=== PATIENT | female | born 1980 | race Caucasian/White ===

== ENCOUNTER 2018-03-09 05:30 | Inpatient (IN) | payer BC ==
[2018-03-09] MEDS ORDERED: LR / Pitocin 40 units/1000 ml 1,000 ML IV PRN (05:58)
[2018-03-09] MEDS ORDERED: Docusate 100 MG CAP PO PRN (05:58)
[2018-03-09] MEDS ORDERED: HYDROcodone/Acetaminophen 5/325 mg Tablet PO PRN ×3 (05:58→18:52)
[2018-03-09] MEDS ORDERED: Diphenoxylate HCl/Atropine Tablet PO PRN ×2 (05:58)
[2018-03-09] MEDS ORDERED: Ondansetron HCl/PF 4 MG/2 ML Vial IVP PRN ×2 (05:58→18:52)
[2018-03-09] MEDS ORDERED: Zolpidem Tartrate 5 MG TAB PO PRN ×2 (05:58→18:52)
[2018-03-09] MEDS ORDERED: Promethazine HCl 25 MG/ML VIAL IM PRN (05:58)
[2018-03-09] MEDS ORDERED: LR 500 ML/Oxytocin 10 units 500 ML IV SCH (05:58)
[2018-03-09] MEDS ORDERED: Misoprostol 200 MCG TAB PR PRN (05:58)
[2018-03-09] MEDS ORDERED: Ibuprofen 800 MG TAB PO PRN (05:58)
[2018-03-09] MEDS ORDERED: Acetaminophen 500 MG TAB PO PRN (05:58)
[2018-03-09] MEDS ORDERED: Lidocaine 1% (PF) 30 ML VIAL SC PRN (05:58)
[2018-03-09] MEDS ORDERED: CEFAZOLIN 1 GM in Syringe 10 ML IVPB SCH (06:00)
[2018-03-09] MEDS: Lactated Ringer's 1,000 ML IV SCH ×4 (06:15→19:00)
[2018-03-09 06:34] VITALS: BMI 46.6
[2018-03-09 06:38] LABS: Hemoglobin 12.5 g/dL (12.0-16.0); Mean Corpuscular HGB CONC 33.7 g/dL (32.0-36.0); Mean Corpuscular Hemoglobin 29.8 pg (27.0-31.0); Mean Corpuscular Volume 88.4 fl (81.0-99.0); Mean Platelet Volume 7.7 fL (7.4-10.4); Platelet Count 331 thou/uL (130-400); RBC Distribution Width 13.8 % (11.5-14.5); Red Blood Cell (RBC) Count 4.19 mill/uL (4.20-5.40); White Blood Cell (WBC) Count 13.2 thou/uL (4.8-10.8)
[2018-03-09 07:19] LABS: Hep B Surf Ag Non-Reactive S/CO (NonReactive); Syphilis Antibody Nonreactive (Nonreactive); Syphilis Antibody Index 0.03 S/CO (<1.00 Non-Reactive)
[2018-03-09] MEDS ORDERED: Lidocaine 2% MPF 10 ML AMP (For Epidural Use) ONE (09:00)
[2018-03-09] MEDS ORDERED: Bupivacaine 0.25% HCL 30 ML VIAL ONE (09:00)
[2018-03-09] MEDS ORDERED: DISCONTINUE ALL PREVIOUS NARCOTICS FS SCH (10:30)
[2018-03-09] MEDS: Bupivacaine 0.5% 20 ML, fentaNYL Citrate/PF 400 MCG in Sodium Chloride 0.9% 72 ML EPIDURAL SCH ×2 (11:40→17:05)
[2018-03-09] MEDS ORDERED: Bisacodyl 10 MG SUPP PR PRN (18:52)
[2018-03-09] MEDS ORDERED: diphenhydrAMINE 25 MG CAP PO PRN (18:52)
[2018-03-09] MEDS ORDERED: Milk Of Magnesia 30 ML UDCUP PO PRN (18:52)
[2018-03-09] MEDS ORDERED: Benzocaine/Menthol 20-0.5% 60 ML CAN TOP PRN (18:52)
[2018-03-09] MEDS ORDERED: Adacel (T-DAP) 0.5 ML VIAL IM ONE (18:52)
[2018-03-09] MEDS ORDERED: Preparation H Ointment 28 GM TUBE PR PRN (18:52)
[2018-03-09] MEDS ORDERED: Lanolin Ointment 7 GM TUBE TOP PRN (18:52)
[2018-03-09] MEDS ORDERED: LR / Pitocin 40 units/1000 ml 1,000 ML IV SCH (19:00)
[2018-03-09] MEDS: Ibuprofen 800 MG TAB PO SCH (20:32)
[2018-03-09] MEDS: Docusate Calcium (SURFAK) 240 MG CAP PO SCH (22:10)
[2018-03-10 05:20] LABS: Hemoglobin 11.1 g/dL (12.0-16.0); Mean Corpuscular HGB CONC 33.2 g/dL (32.0-36.0); Mean Corpuscular Hemoglobin 29.6 pg (27.0-31.0); Mean Corpuscular Volume 89.4 fl (81.0-99.0); Platelet Count 270 thou/uL (130-400); RBC Distribution Width 13.9 % (11.5-14.5); Red Blood Cell (RBC) Count 3.75 mill/uL (4.20-5.40); White Blood Cell (WBC) Count 17.1 thou/uL (4.8-10.8)
[2018-03-10] MEDS: Ibuprofen 800 MG TAB PO SCH ×3 (05:34→21:49)
[2018-03-10] MEDS: Ferrous Sulfate 325 MG TAB PO SCH ×2 (07:18→16:40)
[2018-03-10] MEDS: Prenatal Vitamin 1 TAB PO SCH (09:06)
[2018-03-10] MEDS: Docusate Calcium (SURFAK) 240 MG CAP PO SCH ×2 (09:06→21:49)
[2018-03-10] MEDS: HYDROcodone/Acetaminophen 5/325 mg Tablet PO PRN (15:15)
[2018-03-11] MEDS: Ibuprofen 800 MG TAB PO SCH (05:44)
[2018-03-11] MEDS: Docusate Calcium (SURFAK) 240 MG CAP PO SCH (10:55)
[2018-03-11] MEDS: Prenatal Vitamin 1 TAB PO SCH (10:56)
[2018-03-11] MEDS: Ferrous Sulfate 325 MG TAB PO SCH (10:56)
[2018-03-11] MEDS: HYDROcodone/Acetaminophen 5/325 mg Tablet PO PRN (10:58)
[2018-03-11 12:03] VITALS: BP 130/72; TEMP 98.5
== END 2018-03-11 12:20 | disposition home or self-care (01) | DRG 775 ==
LOC: L&D 05:54 → 3SE 21:21
PROVIDERS: ADMIT Obstetrics & Gynecology; ATTEND Obstetrics & Gynecology
PROC: 10E0XZZ Delivery of Products of Conception, External Approach (ICD-10-PCS; principal; 2018-03-09)
PROC: 0KQM0ZZ Repair Perineum Muscle, Open Approach (ICD-10-PCS; 2018-03-09)
PROC: 10907ZC Drainage of Amniotic Fluid, Therapeutic from Products of Conception, Via Natural or Artificial Opening (ICD-10-PCS; 2018-03-09)
PROC: 3E033VJ Introduction of Other Hormone into Peripheral Vein, Percutaneous Approach (ICD-10-PCS; 2018-03-09)
DX: O99.824 Streptococcus B carrier state complicating childbirth (principal); Z37.0 Single live birth; O70.1 Second degree perineal laceration during delivery; Z3A.39 39 weeks gestation of pregnancy
CPT/HCPCS: 36415; 85027; 86780; 87340; J0595; J0690; J2001; J3010; J3490; J7050; J7120; S0020

== ENCOUNTER 2018-12-05 23:37 | Emergency (ER) | payer BC ==
[2018-12-06 00:58] LABS: Bilirubin Negative (Negative); Blood, Urine Negative (Negative); Clarity Slightly Cloudy (Clear); Glucose, Urine (Dipstick) Negative (Negative); Leukocyte Trace (Negative); Nitrite Negative (Negative); Protein, Urine (Dipstick) Negative (Neg-Trace); Specific Gravity, Urine 1.025 (1.005-1.030); Urobilinogen 0.2 mg/dL (0.2-1.0)
[2018-12-06 01:06] LABS: Bacteria/HPF 2+ HPF (None Seen); Hyaline Casts/LPF NONE SEEN LPF (0-3 Hyaline)
[2018-12-06 01:10] LABS: Band 1 % (5-11); Eosinophils 4 % (0-10); Hemoglobin 12.9 g/dL (12.0-16.0); Lymphocytes 16 % (21-51); MDiff Complete? YES; Mean Corpuscular HGB CONC 34.4 g/dL (32.0-36.0); Mean Corpuscular Hemoglobin 30.7 pg (27.0-31.0); Mean Corpuscular Volume 89.2 fL (78.0-98.0); Mean Platelet Volume 7.1 fL (7.4-10.4); Monocytes 6 % (0-10); Neutrophil 73 % (42-75); Platelet Count 309 thou/uL (130-400); RBC Distribution Width 13.3 % (11.5-14.5); Red Blood Cell (RBC) Count 4.19 mill/uL (4.20-5.40); White Blood Cell (WBC) Count 12.8 thou/uL (4.8-10.8)
[2018-12-06 01:12] LABS: ALT (SGPT) 11 U/L (8-55); AST (SGOT) 10 U/L (5-34); Albumin 3.7 g/dL (3.5-5.0); Alkaline Phosphatase 52 U/L (40-150); Anion Gap 17 mmol/L (10-20); BUN (Urea Nitrogen) 12 mg/dL (7.0-18.7); Bilirubin, Total 0.3 mg/dL (0.2-1.2); Calc. Creatinine Clearance 0 mL/min (70-130); Calcium 9.5 mg/dL (7.8-10.44); Carbon Dioxide 19 mmol/L (22-29); Chloride 105 mmol/L (98-107); Estimated GFR-MDRD Greater than 90; Globulin 3.6 g/dL (2.4-3.5); Glucose 119 mg/dL (70-105); Potassium 3.9 mmol/L (3.5-5.1); Protein, Total 7.3 g/dL (6.0-8.3); Sodium 137 mmol/L (136-145)
[2018-12-06] MEDS ORDERED: Morphine 4 MG/ML Carpuject ONE ×2 (01:35→02:50)
[2018-12-06 02:15] LABS: Bilirubin Negative (Negative); Blood, Urine Trace (Negative); Clarity Cloudy (Clear); Glucose, Urine (Dipstick) Negative (Negative); Leukocyte Negative (Negative); Nitrite Negative (Negative); Protein, Urine (Dipstick) Negative (Neg-Trace); Specific Gravity, Urine 1.026 (1.002-1.036); Urobilinogen 0.2 mg/dL (0.2-1.0); pH, Urine 5.5 (5.0-9.0)
[2018-12-06 02:18] LABS: RBC/HPF 0-3 HPF (0-3)
[2018-12-06 02:20] LABS: Bacteria/HPF Rare-Few HPF (None Seen); Hyaline Casts/LPF NONE SEEN LPF (0-3 Hyaline)
[2018-12-06] MEDS ORDERED: Acetaminophen 500 MG TAB ONE (02:51)
[2018-12-06] MEDS ORDERED: Lidocaine 1% PF 5 ML VIAL ONE (02:51)
[2018-12-06] MEDS ORDERED: cefTRIAXone\\ROCEPHIN 1 GM VIAL ONE (02:51)
--- NOTE | 2018-12-06 09:25 | ULT ---
PRELIMINARY REPORT/[facility]/EMERGENTY AFTER-HOURS PROCEDURE US Retroperitoneal Limited, Kidneys EXAM DATE/TIME: 12/06/2018 1:07 AM CLINICAL HISTORY: 38 years old, female; Pain; Abdominal pain; Flank; Right; ; Patient HX: RT flank pain x 1 day , pain worse to RT flank; Additional info: HX: Recent uti, kidney stones TECHNIQUE: Real-time ultrasound of the retroperitoneum with image documentation. Examination was focused on the kidneys. COMPARISON: No relevant prior studies available. FINDINGS: Right kidney: Nonobstructing renal calculi. No hydronephrosis. No mass. Left kidney: Nonobstructing renal calculi. No hydronephrosis. No mass. Other findings: Questional echogenic foci posterior to bladder/questionable right ureteral calculi. B ilateral ureteral jets visualized. Bladder is somewhat decompressed. Partially visualized ( FHR: 147bpm). IMPRESSION: Bilateral nonobstructing renal calculi. Questionable echogenic foci posterior to bladder/questionable right ureteral calculi. Bilateral urete ral jets visualized. No hydronephrosis. Thank you for allowing us to participate in the care of your patient. Dictated and Authenticated by: Zachary Hill MD 12/06/2018 2:16 AM Central Time ([place] & [place]) FINAL REPORT BILATERAL RENAL SONOGRAM PERFORMED ON AN EMERGENCY BASIS: Date: 12/06/18 Time: 0108 hours HISTORY: Flank pain. Patient is . FINDINGS: Findings agree with the preliminary report by [facility]. Small, nonobstructing bilateral renal calculi. Bi lateral ureteral jets are visible at the bladder base. Echogenic focus at the posterior aspect of the urinary bladder may represent a urinary bladder calculus. No evidence of urinary tract obstruction. POS: [facility]
== END 2018-12-06 03:50 | disposition home or self-care (01) ==
LOC: SCSER 23:37
DX: O99.89 Other specified diseases and conditions complicating pregnancy, childbirth and the puerperium (principal); N20.0 Calculus of kidney; Z87.442 Personal history of urinary calculi; Z3A.18 18 weeks gestation of pregnancy
CPT/HCPCS: 36415; 51701; 76770; 80053; 81003; 81015; 85025; 87086; 96372; A4353; J0696; J2001; J2270

== ENCOUNTER 2019-04-25 16:07 | Inpatient (IN) | payer BC ==
[2019-04-25 16:48] VITALS: BMI 52.2
[2019-04-25] MEDS ORDERED: Misoprostol 200 MCG TAB PR PRN (16:49)
[2019-04-25] MEDS ORDERED: Zolpidem Tartrate 5 MG TAB PO PRN (16:49)
[2019-04-25] MEDS ORDERED: Ondansetron PF 4 MG/2 ML Vial IVP PRN (16:49)
[2019-04-25] MEDS ORDERED: Ibuprofen 800 MG TAB PO PRN (16:49)
[2019-04-25] MEDS ORDERED: Promethazine HCl 25 MG/ML VIAL IM PRN (16:49)
[2019-04-25] MEDS ORDERED: Acetaminophen 500 MG TAB PO PRN (16:49)
[2019-04-25] MEDS ORDERED: Docusate 100 MG CAP PO PRN (16:49)
[2019-04-25] MEDS ORDERED: HYDROcodone/Acetaminophen 5/325 mg Tablet PO PRN ×2 (16:49)
[2019-04-25] MEDS ORDERED: NS / Oxytocin 40 units/1000ml 1,000 ML IV PRN (16:49)
[2019-04-25] MEDS ORDERED: Lidocaine 1% (PF) 30 ML VIAL SC PRN (16:49)
[2019-04-25] MEDS ORDERED: Diphenoxylate HCl/Atropine Tablet PO PRN ×2 (16:49)
[2019-04-25] MEDS ORDERED: NS w/ Oxytocin 10 units 500 ML IV SCH (17:00)
[2019-04-25 17:21] LABS: #Eosinphils 0.1 thou/uL (0.0-0.7); #Lymphocytes 1.6 thou/uL (1.20-3.40); #Monocytes 0.8 thou/uL (0.11-0.59); #Neutrophils 8.9 thou/uL (1.40-6.50); %Basophils 0.2 % (0.0-1.0); %Eosinophils 0.7 % (0.0-10.0); %Monocytes 6.7 % (0.0-10.0); %Neutrophils 78.3 % (42.0-75.0); Hemoglobin 11.9 g/dL (12.0-16.0); Mean Corpuscular HGB CONC 33.8 g/dL (32.0-36.0); Mean Corpuscular Hemoglobin 29.6 pg (27.0-31.0); Mean Corpuscular Volume 87.4 fL (78.0-98.0); Mean Platelet Volume 8.9 fL (7.4-10.4); Platelet Count 326 thou/uL (130-400); RBC Distribution Width 13.4 % (11.5-14.5); Red Blood Cell (RBC) Count 4.02 mill/uL (4.20-5.40); White Blood Cell (WBC) Count 11.4 thou/uL (4.8-10.8)
[2019-04-25 17:32] LABS: Uric Acid 7.4 mg/dL (2.6-6.0)
[2019-04-25 17:47] LABS: HBSAg Index 0.56 S/CO (0-0.99); Hep B Surf Ag Non-Reactive S/CO (NonReactive); Syphilis Antibody Nonreactive (Nonreactive); Syphilis Antibody Index 0.02 S/CO (<1.00 Non-Reactive)
[2019-04-25] MEDS ORDERED: Labetalol HCl 100 MG/20 ML VIAL ONE (18:49)
[2019-04-25] MEDS ORDERED: Labetalol HCl 100 MG/20 ML VIAL SLOW IVP PRN (18:57)
[2019-04-25] MEDS ORDERED: hydrALAZINE 20 MG/ML VIAL SLOW IVP PRN (19:47)
[2019-04-25] MEDS: Lactated Ringer's 1,000 ML IV SCH (20:07)
[2019-04-26] MEDS: Butorphanol Tartrate 1 MG/ML VIAL SLOW IVP PRN ×3 (01:49→04:42)
[2019-04-26] MEDS ORDERED: Fentanyl 4 mcg/Bup 0.1% Cadd 100 ML ONE ×3 (05:46→19:36)
[2019-04-26] MEDS ORDERED: Fentanyl 100 MCG/2 ML VIAL ONE ×4 (06:39→21:34)
[2019-04-26] MEDS ORDERED: Acetaminophen 325 MG TAB PO PRN ×2 (07:27→21:56)
[2019-04-26] MEDS ORDERED: Promethazine HCl 25 MG/ML VIAL IM PRN ×2 (07:27→20:26)
[2019-04-26] MEDS ORDERED: Lactated Ringer's 500 ML IV PRN (07:27)
[2019-04-26] MEDS ORDERED: Naloxone HCl 0.4 mg/ml Vial IVP PRN ×4 (07:27→20:26)
[2019-04-26] MEDS ORDERED: ePHEDrine/0.9% NaCl/PF SYRINGE 50 mg/10 ml SLOW IVP PRN (07:27)
[2019-04-26] MEDS ORDERED: Ondansetron PF 4 MG/2 ML Vial IVP PRN ×3 (07:27→21:56)
[2019-04-26] MEDS ORDERED: diphenhydrAMINE 50 MG/ML VIAL IVP PRN ×2 (07:27→20:26)
[2019-04-26] MEDS ORDERED: Communication Order-Pharmacy FS SCH ×2 (07:30→20:30)
[2019-04-26] MEDS ORDERED: Fentanyl 4 mcg/Bupivacaine 0.1% Cassette 100 ML EPIDURAL SCH (07:30)
[2019-04-26] MEDS: Lactated Ringer's 1,000 ML IV SCH ×3 (07:51→23:41)
[2019-04-26] MEDS ORDERED: PROVENTIL INHALER 6.7 G (200 INHALATIONS) INH PRN (10:46)
[2019-04-26] MEDS: NS w/ Oxytocin 10 units 500 ML IV SCH ×2 (15:45→23:46)
[2019-04-26] MEDS ORDERED: Clindamycin/D5W 900 mg/50 ml Premix Bag ONE (19:20)
[2019-04-26] MEDS ORDERED: Bicitra 30 ML UDCUP ONE (19:50)
[2019-04-26] MEDS ORDERED: Lidocaine 2% 10 ML INJ ONE ×2 (19:53→20:06)
[2019-04-26] MEDS ORDERED: Gentamicin Sulfate 80 MG in Premix Bag 1 BAG IVPB SCH ×2 (20:00→22:30)
[2019-04-26] MEDS ORDERED: Oxytocin 10 UNITS/ML VIAL ONE ×2 (20:00→21:43)
[2019-04-26] MEDS ORDERED: MORPHINE 5 MG/10 ML PF VIAL ONE (20:02)
[2019-04-26] MEDS ORDERED: Ondansetron HCl/PF 4 MG/2 ML Vial IVP PRN (20:26)
[2019-04-26] MEDS ORDERED: L&D-Morphine 4 MG/ML VIAL SLOW IVP PRN (20:26)
[2019-04-26] MEDS ORDERED: Naloxone HCl 0.4 mg/ml Vial IV PRN (20:26)
[2019-04-26] MEDS ORDERED: HYDROmorphone 2 MG/ML VIAL SLOW IVP PRN (20:26)
[2019-04-26] MEDS ORDERED: Promethazine HCl 25 MG SUPP PR PRN (20:26)
[2019-04-26] MEDS ORDERED: Ketorolac Tromethamine 30 MG/ML VIAL IVP SCH (20:30)
[2019-04-26 21:07] LABS: Actual Bicarbonate (HCO3a) 24.6 mEq/L (22-28)
[2019-04-26 21:09] LABS: Actual Bicarbonate (HCO3v) 23 mEq/L (22-28); Base Excess -6.4 mEq/L (-2.0 to +3.0)
[2019-04-26] MEDS ORDERED: Misoprostol 200 MCG TAB PR PRN (21:56)
[2019-04-26] MEDS ORDERED: Bisacodyl 10 MG SUPP PR PRN (21:56)
[2019-04-26] MEDS ORDERED: Adacel (T-DAP) 0.5 ML SYRINGE IM ONE (21:56)
[2019-04-26] MEDS ORDERED: diphenhydrAMINE 25 MG CAP PO PRN (21:56)
[2019-04-26] MEDS ORDERED: Lanolin Ointment 7 GM TUBE TOP PRN (21:56)
[2019-04-26] MEDS ORDERED: Clindamycin/D5W 900 MG in Premix Bag 1 BAG IVPB SCH (22:00)
[2019-04-26] MEDS ORDERED: NS / Oxytocin 40 units/1000ml 1,000 ML IV SCH (22:00)
[2019-04-26] MEDS ORDERED: Lactated Ringer's 1,000 ML IV SCH (22:00)
[2019-04-26] MEDS ORDERED: hydrALAZINE 20 MG/ML VIAL SLOW IVP PRN (22:13)
[2019-04-26] MEDS ORDERED: Meperidine HCl/PF 25 MG/ML VIAL ONE ×2 (22:17→23:08)
[2019-04-26] MEDS: Meperidine HCl/PF 25 MG/ML VIAL SLOW IVP PRN ×2 (22:18→23:09)
[2019-04-27] MEDS ORDERED: Ketorolac Tromethamine 30 MG/ML VIAL ONE (00:39)
[2019-04-27] MEDS: Ketorolac Tromethamine 30 MG/ML VIAL IVP PRN ×2 (00:40→06:07)
[2019-04-27] MEDS: Lactated Ringer's 1,000 ML IV SCH (02:45)
[2019-04-27] MEDS ORDERED: Clindamycin/D5W 900 MG in Premix Bag 1 BAG IVPB SCH (06:00)
[2019-04-27 06:02] LABS: Hemoglobin 10.3 g/dL (12.0-16.0); Mean Corpuscular HGB CONC 32.4 g/dL (32.0-36.0); Mean Corpuscular Hemoglobin 29.2 pg (27.0-31.0); Mean Platelet Volume 8.4 fL (7.4-10.4); Platelet Count 238 thou/uL (130-400); RBC Distribution Width 13.5 % (11.5-14.5); Red Blood Cell (RBC) Count 3.52 mill/uL (4.20-5.40); White Blood Cell (WBC) Count 14.6 thou/uL (4.8-10.8)
[2019-04-27] MEDS: HYDROcodone/Acetaminophen 5/325 mg Tablet PO PRN ×4 (07:47→19:55)
[2019-04-27] MEDS: Labetalol 100 MG TAB PO SCH ×3 (07:49→21:23)
[2019-04-27] MEDS ORDERED: Zolpidem Tartrate 5 MG TAB PO PRN (08:30)
[2019-04-27] MEDS ORDERED: Meperidine HCl/PF 25 MG/ML VIAL IM PRN (08:30)
[2019-04-27] MEDS ORDERED: Bupivacaine 0.25% HCL 30 ML VIAL ONE (11:11)
[2019-04-27] MEDS ORDERED: Bupivacaine HCl 0.25%/Epi 0.0005/PF 10 ML VIAL FS ONE (11:11)
[2019-04-27] MEDS ORDERED: Lidocaine 2% MPF 10 ML AMP (For Epidural Use) ONE (11:11)
[2019-04-27] MEDS: Docusate Calcium (SURFAK) 240 MG CAP PO SCH ×2 (12:05→21:23)
[2019-04-27] MEDS: Ferrous Sulfate 325 MG TAB PO SCH ×2 (12:06→21:23)
[2019-04-27] MEDS: Prenatal Vitamin 1 TAB PO SCH (12:07)
[2019-04-27] MEDS: Simethicone Chewable 80 MG TAB PO PRN (21:24)
[2019-04-27] MEDS: Ibuprofen 800 MG TAB PO SCH (21:24)
[2019-04-27] MEDS ORDERED: Sulfameth/Trimethoprim DS 800-160mg TAB PO SCH (21:30)
[2019-04-28] MEDS: HYDROcodone/Acetaminophen 5/325 mg Tablet PO PRN ×4 (04:02→22:00)
[2019-04-28] MEDS: Ibuprofen 800 MG TAB PO SCH ×3 (06:02→21:59)
[2019-04-28] MEDS: Ferrous Sulfate 325 MG TAB PO SCH ×2 (08:24→22:01)
[2019-04-28] MEDS: Sulfameth/Trimethoprim DS 800-160mg TAB PO SCH ×2 (08:24→21:59)
[2019-04-28] MEDS: Prenatal Vitamin 1 TAB PO SCH (08:24)
[2019-04-28] MEDS: Simethicone Chewable 80 MG TAB PO PRN (08:26)
[2019-04-28] MEDS: Docusate Calcium (SURFAK) 240 MG CAP PO SCH ×2 (13:00→22:00)
[2019-04-29] MEDS: HYDROcodone/Acetaminophen 5/325 mg Tablet PO PRN ×3 (04:08→15:17)
[2019-04-29] MEDS: Ibuprofen 800 MG TAB PO SCH ×2 (05:44→13:04)
[2019-04-29] MEDS: Prenatal Vitamin 1 TAB PO SCH (07:58)
[2019-04-29] MEDS: Sulfameth/Trimethoprim DS 800-160mg TAB PO SCH (07:58)
[2019-04-29] MEDS: Docusate Calcium (SURFAK) 240 MG CAP PO SCH (07:59)
[2019-04-29] MEDS: Ferrous Sulfate 325 MG TAB PO SCH (08:20)
[2019-04-29] MEDS ORDERED: Labetalol 100 MG TAB PO SCH ×2 (10:30→21:00)
[2019-04-29 12:23] VITALS: TEMP 98.5
[2019-04-29 13:12] VITALS: BP 134/74
== END 2019-04-29 15:55 | disposition home or self-care (01) | DRG 788 ==
LOC: L&D 16:07 → 3SE 04-27 01:25
PROVIDERS: ADMIT Obstetrics & Gynecology; ATTEND Obstetrics & Gynecology
PROC: 10D00Z1 Extraction of Products of Conception, Low, Open Approach (ICD-10-PCS; principal; 2019-04-26)
PROC: 3E033VJ Introduction of Other Hormone into Peripheral Vein, Percutaneous Approach (ICD-10-PCS; 2019-04-26)
DX: O14.94 Unspecified pre-eclampsia, complicating childbirth (principal); O33.9 Maternal care for disproportion, unspecified; Z3A.38 38 weeks gestation of pregnancy; Z37.0 Single live birth; Z88.0 Allergy status to penicillin; Z88.8 Allergy status to other drugs, medicaments and biological substances; Z91.012 Allergy to eggs; Z91.013 Allergy to seafood
CPT/HCPCS: 36415; 51702; 82570; 82805; 83615; 84155; 84450; 84460; 84550; 85027; 86780; 86850; 86900; 86901; 87340; 90715; J0360; J0595; J1580; J1885; J2001; J2175; J2270; J2405; J2550; J2590; J3010; J3490; S0020

== ENCOUNTER 2019-12-06 10:34 | Outpatient (CLI) | payer BC ==
--- NOTE | 2019-12-06 11:31 | MMO ---
Bilateral MAMMO Bilat Screen [facility]. CLINICAL HISTORY: Patient is 39 years old and is seen for screening. The patient has no family history of breast cancer. The patient has no personal history of cancer. VIEWS: The views performed were: bilateral craniocaudal with tomosynthesis; bilateral mediolateral oblique; and bilateral mediolateral oblique with tomosynthesis. This study has been interpreted with the assistance of computer-aided detection. MAMMOGRAM FINDINGS: There are scattered fibroglandular densities. There are benign appearing calcifications seen in both breasts. There are no suspicious masses, suspicious calcifications, or new areas of architectural distortion. IMPRESSION: THERE IS NO MAMMOGRAPHIC EVIDENCE OF MALIGNANCY. A ROUTINE FOLLOW-UP MAMMOGRAM IN 1 YEAR IS RECOMMENDED. THE RESULTS OF THIS EXAM WERE SENT TO THE PATIENT. ACR BI-RADS Category 2 - Benign finding MAMMOGRAPHY NOTE: 1. A negative mammogram report should not delay a biopsy if a dominant of clinically suspicious mass is present. 2. Approximately 10% to 15% of breast cancers are not detected by mammography. 3. Adenosis and dense breasts may obscure an underlying neoplasm. Reported by: FREDDY SPIVEY MD Electonically Signed: [id number]
== END 2019-12-06 10:35 | disposition home or self-care (01) ==
LOC: BICMAMMO 10:34
PROVIDERS: ATTEND Obstetrics & Gynecology
DX: Z12.31 Encounter for screening mammogram for malignant neoplasm of breast (principal)
CPT/HCPCS: 77063; 77067

== ENCOUNTER 2023-09-20 10:26 | Day surgery (SDC) | payer BC ==
[2023-09-16 15:47] VITALS: BMI 46.7
[2023-09-20] MEDS ORDERED: cefTRIAXone (ROCEPHIN) 2 GM VIAL ONE (12:26)
[2023-09-20] MEDS ORDERED: Sodium Chloride 0.9% 100 ML ONE (12:27)
[2023-09-20] MEDS ORDERED: Iopamidol 15 ML ONE (13:12)
[2023-09-20] MEDS ORDERED: fentaNYL PF 100 MCG/2 ML SYRINGE ONE (13:16)
[2023-09-20] MEDS ORDERED: Midazolam HCl 2 mg/2 ml Vial ONE (13:16)
[2023-09-20] MEDS ORDERED: Rocuronium Bromide 10 MG/ML (10ML VIAL) ONE (13:44)
[2023-09-20] MEDS ORDERED: Ondansetron PF 4 MG/2 ML Vial ONE (13:44)
[2023-09-20] MEDS ORDERED: PROPOFOL 200 MG/20 ML VIAL ONE (13:44)
[2023-09-20] MEDS ORDERED: Lidocaine 1% PF 5 ML VIAL ONE (13:44)
[2023-09-20] MEDS ORDERED: Esmolol 100 MG/10 ML VIAL ONE (13:44)
[2023-09-20] MEDS ORDERED: SUGAMMADEX SODIUM 200 MG/2 ML VIAL ONE (14:31)
[2023-09-20] MEDS ORDERED: HYDROcodone/Acetaminophen 5/325 mg Tablet ONE (16:07)
== END 2023-09-20 16:30 | disposition home or self-care (01) ==
LOC: SDC 10:26
PROVIDERS: ATTEND Urology
PROC: 0T768DZ Dilation of Right Ureter with Intraluminal Device, Via Natural or Artificial Opening Endoscopic (ICD-10-PCS; principal; 2023-09-20)
PROC: 0TC78ZZ Extirpation of Matter from Left Ureter, Via Natural or Artificial Opening Endoscopic (ICD-10-PCS; principal; 2023-09-20)
DX: N20.1 Calculus of ureter (principal); J45.909 Unspecified asthma, uncomplicated; E11.9 Type 2 diabetes mellitus without complications
CPT/HCPCS: 74420; 82365; 88300; C1747; C1769; C2617; J0696; J2250; J2405; J2704; J3490; Q9967